=== PATIENT | female | born 1955 | race Caucasian/White ===

== ENCOUNTER 2023-05-03 10:44 | Emergency (ER) | payer MEDICARE, SELFPAY ==
--- NOTE | ~2023-05-03 | XR_ITS ---
EXAMINATION: XR chest 2V DATE: 05/03/2023 11:19 INDICATION: Weakness TECHNIQUE: frontal and lateral views of the chest were obtained. COMPARISON: None FINDINGS: The lungs are clear with no focal airspace opacities, pulmonary edema, pleural effusion or pneumothor ax. The cardiomediastinal silhouette is normal. Cholecystectomy clips in right upper quadrant. Mild t horacic spondylosis. IMPRESSION: 1. No acute cardiopulmonary disease. Reviewed, dictated and finalized at location L.
[2023-05-03 10:34] VITALS: BP 118/72; PULSE 100; RESP 16; TEMP 36.2; O2SAT 97
--- NOTE | 2023-05-03 10:52 | ECG_ITS ---
Measurements Intervals [place] Rate: 99 P: 59 CO: 154 QRS: 22 QRSD: 67 T: 63 QT: 345 QTc: 443 Interpretive Statements SINUS RHYTHM LOW QRS VOLTAGE IN PRECORDIAL LEADS BORDERLINE T WAVE ABNORMALITY- DIFFUSE LEADS BASELINE ARTIFACT- I, II, AVR, V2 BORDERLINE ECG NO PREVIOUS ECG AVAILABLE FOR COMPARISON Electronically Signed On 05-03-2023 11:19:14 CDT by Carlos Helms D.O.
[2023-05-03 11:02] VITALS: PULSE 98
[2023-05-03 11:13] LABS: Basophils Percent Auto 0.4 % (0.2-1.2); Eosinophils Absolute Auto 0.1 K/mm3 (0-0.3); Hematocrit 38.6 % (37.0-47.0); Hemoglobin 12.6 g/dL (12.0-15.0); Immature Granulocyte Absolute 0.03 K/mm3 (0.00-0.031); Immature Granulocyte Percent A 0.4 % (0-0.5); Lymphocytes Absolute Auto 2.16 K/mm3 (0.9-3.2); Lymphocytes Percent Auto 30.7 % (18.3-44.2); Mean Corpuscular HGB Conc 32.6 g/dl (32-36); Mean Corpuscular Hemoglobin 30.7 pg (26-34); Mean Corpuscular Volume 94.1 fl (80-100); Mean Platelet Volume 11.5 fl (7.4-10.4); Monocytes Absolute Auto 0.4 K/mm3 (0.1-0.6); Monocytes Percent Auto 5.3 % (2.6-8.5); Neutrophils Absolute Auto 4.3 K/mm3 (1.3-6.7); Neutrophils Percent Auto 61.2 % (45.5-73.1); Platelet Count Result 195 k/mm3 (150-375); Red Cell Distribution Width 13.5 % (11.5-14.5)
[2023-05-03 11:22] LABS: Alanine Aminotransferase 17 U/L (6-35); Albumin Level 3.7 g/dL (3.5-5.1); Alkaline Phosphatase 97 U/L (38-126); Anion Gap 8 mmol/L (8-16); Aspartate Amino Transferase 23 U/L (14-36); Bilirubin,Total 0.3 mg/dL (0.2-1.3); Blood Urea Nitrogen 15 mg/dL (7-17); Calcium 8.8 mg/dL (8.4-10.2); Carbon Dioxide 22 mmol/L (22-30); Chloride 110 mmol/L (98-107); Estimated CRCL calculation 49 ml/min; Estimated Glomerular Filt Rate > 60; Glucose 175 mg/dL (65-110); Potassium 3.6 mmol/L (3.4-5.0); Sodium 140 mmol/L (137-145)
[2023-05-03 12:30] VITALS: PULSE 99; RESP 13; O2SAT 97
[2023-05-03 12:30] LABS: Influenza A QL RT-PCR Negative (Negative); Influenza B QL RT-PCR Negative (Negative); RSV RNA, RT-PCR Negative (Negative); SARS-CoV-2 RNA PCR Negative (Negative)
--- NOTE | 2023-05-03 12:53 | PC.NURSE ---
pt attempted to give urine sample and was unsuccessful. denying straight cath at this time.
[2023-05-03] MEDS: SODIUM CHLORIDE 0.9% IV 1,000 ML 999 ML IV CONT (13:08)
[2023-05-03 13:12] VITALS: BP 100/66; PULSE 100; RESP 16; O2SAT 100
[2023-05-03 13:24] LABS: Hemoglobin A1C 5.6 % (<5.7)
[2023-05-03 14:31] VITALS: BP 114/77; PULSE 90; RESP 12; O2SAT 98
[2023-05-03 14:31] LABS: Appearance Urine Clear (Clear); Bacteria Urine None Seen /hpf; Bilirubin Urine Negative (Negative); Blood Urine Negative (Negative); Color Urine Dark Yellow (Yellow); Glucose Urine UA Negative (Negative); Hyaline Casts Urine Present /lpf; Ketones Urine Trace mg/dL (Negative); Leukocyte Esterase Ur Negative LEU/UL (Negative); Nitrate Urine Negative (Negative); Protein Urine Trace mg/dL (Negative); RBC Urine 0-2 /hpf (0-2); Specific Grav Ur 1.024 (1.001-1.035); Squamous Epithelial Cell Urine Occasional /hpf (Few); WBC Urine 0-5 /hpf (0-3)
[2023-05-03 14:33] LABS: Add Urine Microscopic? YES
[2023-05-03 14:47] VITALS: BP 115/79; BP 117/75; BP 121/85; PULSE 93; PULSE 96; PULSE 97
--- NOTE | 2023-05-03 15:06 | ED.GENADULT ---
HPI - General Adult General Chief complaint: Weakness Stated complaint: weaknesss Time Seen by Provider: 05/03/23 10:54 History of Present Illness HPI narrative: Patient is a 67-year-old female who presents ER after having a syncopal episode a gas station. Patient driven down here from out of town to protest her taxes. She went to the bathroom and got lightheaded. She disease to the ground and did not strike her head. No fevers or chills or sweats. No chest pain or chest pressure. Reports she had a small breakfast this morning. She is not feeling racing of her heart. patient initially hypertensive. Related Data Allergies Allergy/AdvReac Type Severity Reaction Status Date / Time codeine Allergy Nausea and Verified 05/03/23 11:02 Vomiting Review of Systems Review of Systems: All systems reviewed & are unremarkable except as noted in HPI and below Constitutional: Constitutional: Reports no additional constitutional complaints ENT: Reports system reviewed and no additional complaints, except as documented Cardiovascular: Cardiovascular: Reports no additional cardiovascular complaints Respiratory: Respiratory: Reports no additional respiratory complaints Gastrointestinal: Gastrointestinal: Reports no additional gastrointestinal complaints Neurologic: Reports syncope, Denies headache(s), Denies focal weakness and Denies numbness PMFSH Past Medical History Medical History (Updated 05/03/23 @ 15:17 by Deng Leyva MD) Healthy female adult Surgical History Surgical History (Updated 05/03/23 @ 15:17 by Deng Leyva MD) No pertinent past surgical history Exam Narrative: GENERAL: Well-appearing, well-nourished, and in no acute distress. HEAD: Normocephalic, atraumatic. ENT: Mucous membranes moist. NECK: Supple. CHEST: Clear to auscultation. No respiratory distress. HEART: Regular rate and rhythm. Normal peripheral pulses. ABDOMEN: Soft, nontender, nondistended. EXTREMITIES: Normal range of motion. No edema. SKIN: Warm, dry, no rash. NEURO: Alert and oriented x3. PSYCH: Normal mood and affect. Course Course Emergency Course: Patient feels improved after IV fluid. Orthostatics normal. We reviewed labs/ imaging /EKG. Discharge home. Vital Signs Vital signs: Vital Signs Temperature 97.2 F L 05/03/23 10:34 Pulse Rate 100 05/03/23 10:34 Respiratory Rate 16 05/03/23 10:34 Blood Pressure 118/72 05/03/23 10:34 Pulse Oximetry 97 05/03/23 10:34 Temperature 97.2 F L 05/03/23 10:34 Pulse Rate 97 05/03/23 14:47 Respiratory Rate 12 05/03/23 14:31 Blood Pressure 115/79 05/03/23 14:47 Pulse Oximetry 98 05/03/23 14:31 Medical Decision Making Vital Signs Vital Signs: Vital Signs Temperature 97.2 F L 05/03/23 10:34 Pulse Rate 100 05/03/23 10:34 Respiratory Rate 16 05/03/23 10:34 Blood Pressure 118/72 05/03/23 10:34 Pulse Oximetry 97 05/03/23 10:34 Temperature 97.2 F L 05/03/23 10:34 Pulse Rate 97 05/03/23 14:47 Respiratory Rate 12 05/03/23 14:31 Blood Pressure 115/79 05/03/23 14:47 Pulse Oximetry 98 05/03/23 14:31 Lab Data 05/03/23 11:06 05/03/23 11:06 Labs: Lab Results 05/03/23 05/03/23 05/03/23 Range/Units 11:06 11:47 13:50 WBC 7.0 (4.5-10.0) K/mm3 RBC 4.10 L (4.2-5.4) M/mm3 Hgb 12.6 (12.0-15.0) g/dL Hct 38.6 (37.0-47.0) % MCV 94.1 (80-100) fl MCH 30.7 (26-34) pg MCHC 32.6 (32-36) g/dl RDW 13.5 (11.5-14.5) % Plt Count 195 (150-375) k/mm3 MPV 11.5 H (7.4-10.4) fl Immature Gran % (Auto) 0.4 (0-0.5) % Neut % (Auto) 61.2 (45.5-73.1) % Lymph % (Auto) 30.7 (18.3-44.2) % [place] % (Auto) 5.3 (2.6-8.5) % Eos % (Auto) 2.0 (0-4.4) % Baso % (Auto) 0.4 (0.2-1.2) % Lymph # (Auto) 2.16 (0.9-3.2) K/mm3 [place] # (Auto) 0.4 (0.1-0.6) K/mm3 Eos # (Auto) 0.1 (0-0.3) K/mm3 Bas
== END 2023-05-03 16:03 | disposition home or self-care (01) ==
PROVIDERS: Emergency Provider Emergency Medicine; Referring Provider Emergency Medicine
DX: R55 Syncope and collapse (principal); Z20.822 Contact with and (suspected) exposure to COVID-19; R94.31 Abnormal electrocardiogram [ECG] [EKG]
CPT/HCPCS: 36415; 71046; 80053; 83036; 85025; 87637; 93005; 96360; 99283; J7030